=== PATIENT | female | born 1985 | race Hispanic/Latino ===

== ENCOUNTER 2019-11-12 13:06 | Inpatient (IN) | payer BC ==
[~2019-11-12] VITALS: Ht 165.1 cm; Wt 86.2 kg
[2019-11-13] MEDS: AMPICILLIN 1GM+NS 50ML 50 ML IV SCH (01:37)
[2019-11-13] MEDS ORDERED: LACTATED RINGERS 1000ML 1,000 ML IV PRN (20:08)
[2019-11-13] MEDS ORDERED: AMPICILLIN 2GM+NS 100ML 100 ML IV SCH (20:15)
[2019-11-13 21:28] LABS: APPEARANCE,URINE Turbid (CLEAR); BILIRUBIN,URINE Negative (NEGATIVE); COLOR,URINE Dark Yellow (YELLOW); GLUCOSE, URINE (UA) Negative (NEGATIVE); KETONES,URINE Trace mg/dL (NEGATIVE); LEUKOCYTE ESTERASE ,URINE Small (NEGATIVE); NITRATE,URINE Negative (NEGATIVE); OCCULT BLOOD,URINE Negative (NEGATIVE); PROTEIN,URINE Trace mg/dL (NEGATIVE)
[2019-11-13] MEDS ORDERED: OXYTOCIN-LR 20 UNITS/1000 ML 1,000 ML IV SCH (21:30)
[2019-11-13 21:50] LABS: AMORPHOUS SEDIMENT,UR Moderate /LPF (None Seen); BACTERIA,URINE Few /HPF (None Seen); CALCIUM OXALATE CRYSTALS,UR Few /LPF (None Seen); RBC,URINE None Seen /HPF (0-1)
[2019-11-13] MEDS ORDERED: AMPICILLIN 2GM+NS 100ML 100 ML IV ONE (21:53)
[2019-11-13] MEDS ORDERED: MISOPROSTOL 25 MCG TABLET ONE (22:15)
[2019-11-13 22:16] LABS: HEMATOCRIT 32.6 % (36-48); MEAN CORPUSCULAR HEMOGLOBIN 32.9 pg (27.0-33.0); MEAN CORPUSCULAR VOLUME 93.9 fL (79-99); RED BLOOD CELL COUNT(AUTO) 3.47 MIL/uL (4.00-5.50); RED CELL DISTRIBUTION WIDTH 13.2 % (11.0-15.5); WHITE BLOOD COUNT (AUTO) 7.5 K/uL (4.8-10.8)
[2019-11-14] MEDS ORDERED: MEPERIDINE-PF 50 MG/ML SYG IVP PRN (00:15)
[2019-11-14] MEDS ORDERED: PROMETHAZINE HCL 25 MG/ML 1ML AMPULE IM PRN (00:15)
[2019-11-14] MEDS ORDERED: NALOXONE HCL 0.4 MG/1 ML ML IV PRN (00:30)
[2019-11-14] MEDS ORDERED: EPHEDRINE SULFATE 50 MG/ML AMPULE IVP PRN (00:30)
[2019-11-14] MEDS ORDERED: LACTATED RINGERS 500 ML 500 ML IV PRN (00:30)
[2019-11-14] MEDS: MISOPROSTOL 100 MCG TABLET VG SCH (01:41)
[2019-11-14] MEDS ORDERED: PROMETHAZINE HCL 25 MG/ML 1ML AMPULE IM SCH (10:30)
[2019-11-14] MEDS ORDERED: MEPERIDINE-PF 50 MG/ML SYG IVP SCH (10:30)
[2019-11-14] MEDS: AMPICILLIN 1GM+NS 50ML 50 ML IV SCH (11:54)
[2019-11-14] MEDS ORDERED: ROPIVACAINE 0.2% 100ML VIAL 100 ML EP SCH (12:45)
[2019-11-14] MEDS ORDERED: FENTANYL CITRATE PF 50 MCG/1 ML 2ML VIAL ONE (13:16)
[2019-11-14] MEDS ORDERED: LIDOCAINE HCL 2% 20ML ONE (14:07)
[2019-11-14 16:21] VITALS: BP 125/74
[2019-11-14] MEDS ORDERED: FERR-82 PO (16:28)
[2019-11-14] MEDS ORDERED: PREN-154 PO (16:28)
[2019-11-14] MEDS ORDERED: BENZOCAINE/LANOLIN/ALOE VERA 60 ML AEROSOL TP ONE (16:36)
[2019-11-14] MEDS ORDERED: IBUPROFEN 600 MG TABLET ONE (16:36)
[2019-11-14] MEDS ORDERED: WITCH HAZEL 1 PAD TP ONE (16:36)
[2019-11-14] MEDS ORDERED: DIPH,PERTUSS(ACELL),TET VAC/PF 0.5 ML VIAL IM ONE (16:37)
[2019-11-14] MEDS ORDERED: ACETAMINOPHEN-CODEINE 300/30MG TAB PO PRN (16:45)
[2019-11-14] MEDS ORDERED: DIPH,PERTUSS(ACELL),TET VAC/PF 0.5 ML VIAL IM PRN (16:45)
[2019-11-14] MEDS ORDERED: IBUPROFEN 600 MG TABLET PO PRN (16:45)
[2019-11-14] MEDS ORDERED: LANOLIN 30GM OINTMENT TP PRN (16:45)
[2019-11-14] MEDS ORDERED: WITCH HAZEL 1 PAD TP PRN (16:45)
[2019-11-14] MEDS ORDERED: ACETAMINOPHEN 325 MG TAB PO PRN (16:45)
[2019-11-14] MEDS ORDERED: BENZOCAINE/LANOLIN/ALOE VERA 60 ML AEROSOL TP PRN (16:45)
[2019-11-14 20:05] VITALS: BP 108/61
[2019-11-14] MEDS ORDERED: DOCUSATE SODIUM 100 MG CAP PO ONE (21:32)
[2019-11-14] MEDS: DOCUSATE SODIUM 100 MG CAP PO SCH (21:39)
[2019-11-14 23:54] VITALS: BP 123/54
[2019-11-15] MEDS: AMPICILLIN 1GM+NS 50ML 50 ML IV SCH ×2 (00:15→04:15)
[2019-11-15] MEDS: MISOPROSTOL 100 MCG TABLET VG SCH (02:15)
[2019-11-15 04:28] VITALS: BP 112/59
[2019-11-15] MEDS ORDERED: IBUPROFEN 600 MG TABLET ONE (06:35)
[2019-11-15 07:22] VITALS: BP 124/84
[2019-11-15 07:56] LABS: HEMATOCRIT 29.3 % (36-48); MEAN CORPUSCULAR HEMOGLOBIN 32.7 pg (27.0-33.0); MEAN CORPUSCULAR HGB CONC 34.5 g/dL (32.0-36.0); MEAN CORPUSCULAR VOLUME 94.8 fL (79-99); RED BLOOD CELL COUNT(AUTO) 3.09 MIL/uL (4.00-5.50); RED CELL DISTRIBUTION WIDTH 13.2 % (11.0-15.5); WHITE BLOOD COUNT (AUTO) 8.8 K/uL (4.8-10.8)
[2019-11-15] MEDS: DOCUSATE SODIUM 100 MG CAP PO SCH (09:01)
[2019-11-15 09:11] LABS: HEPATITIS Bs ANTIGEN SCREEN P Negative (Negative)
[2019-11-15 11:17] VITALS: BP 128/76
--- NOTE | 2019-11-15 15:00 | NUR ---
DISCHARGE PT LEFT UNIT VIA WHEELCHAIR, WITH BABY IN ARMS, ACCOMPANIED BY FAMILY. DENIED PAIN AND HAD NO COMPLAINTS. BABY STRAPPED IN CAR SEAT. PT AND BABY TRANSPORTED BY PERSONAL VEHICLE.
== END 2019-11-15 15:00 | disposition home or self-care (01) | DRG 807 ==
LOC: LDH 11-13 20:05 → OBSVTOIN 11-13 20:05 → WSH 11-13 20:13 → LDH 11-14 11:10 → WSH 11-14 16:20 → UNDODISIN 11-14 20:15
PROVIDERS: ADMIT Obstetrics & Gynecology; ATTEND Obstetrics & Gynecology
PROC: 10E0XZZ Delivery of Products of Conception, External Approach (ICD-10-PCS; principal; 2019-11-14)
PROC: 0W8NXZZ Division of Female Perineum, External Approach (ICD-10-PCS; 2019-11-14)
PROC: 10907ZC Drainage of Amniotic Fluid, Therapeutic from Products of Conception, Via Natural or Artificial Opening (ICD-10-PCS; 2019-11-14)
PROC: 3E0234Z Introduction of Serum, Toxoid and Vaccine into Muscle, Percutaneous Approach (ICD-10-PCS; 2019-11-14)
PROC: 3E033VJ Introduction of Other Hormone into Peripheral Vein, Percutaneous Approach (ICD-10-PCS; 2019-11-14)
PROC: 3E0R3BZ Introduction of Anesthetic Agent into Spinal Canal, Percutaneous Approach (ICD-10-PCS; 2019-11-14)
PROC: 00HU33Z Insertion of Infusion Device into Spinal Canal, Percutaneous Approach (ICD-10-PCS; 2019-11-14)
DX: O69.81X0 Labor and delivery complicated by cord around neck, without compression, not applicable or unspecified (principal); Z37.0 Single live birth; O99.824 Streptococcus B carrier state complicating childbirth; Z23 Encounter for immunization; Z3A.40 40 weeks gestation of pregnancy
CPT/HCPCS: 36415; 81001; 85027; 86592; 86850; 86900; 86901; 87340; 90715; A4314; G0378; J0290; J2175; J2550; J2590; J2795; J3010; J3490

== ENCOUNTER → 2025-05-04 | Outpatient (CLI) | payer OTHER ==
[~2025-05-04] MED LIST: FERR-82 PO; PREN-154 PO
--- NOTE | 2025-05-05 08:14 | HMCIMG ---
EXAM: Ultrasound Thyroid CLINICAL HISTORY: Thyroid abnormality TECHNIQUE: Real-time ultrasound scan of the thyroid gland and soft tissues of the neck with image documentation. COMPARISON: None provided. FINDINGS: RIGHT THYROID LOBE: Measures 4.5 ??? 1.7 ??? 1.3 cm. Homogeneous echotexture. No focal nodule, cyst, or calcification. LEFT THYROID LOBE: Measures 4.2 ??? 1.4 ??? 1.3 cm. Homogeneous echotexture. No focal nodule, cyst, or calcification. ISTHMUS: Measures 3 mm in thickness. No focal lesion. OTHER SOFT TISSUES: No abnormal cervical soft tissue mass or collection. No significant cervical lymphadenopathy. IMPRESSION: 1. Normal thyroid ultrasound appearance. /[place]
== END | disposition home or self-care (01) ==
LOC: RAH 13:21
PROVIDERS: ATTEND Internal Medicine
DX: E01.0 Iodine-deficiency related diffuse (endemic) goiter (principal)
CPT/HCPCS: 76536